=== PATIENT | male | born 1960 | race Caucasian/White ===

== ENCOUNTER → 2023-07-07 | Day surgery (SDC) | payer MEDICARE, BC, OTHER ==
[~2023-07-07] MED LIST: PROPOFOL 10 MG/ML 20 ML VIAL IV ONE
[2023-07-07] MEDS: LACTATED RINGERS 1,000 ML IV SCH (10:34)
[2023-07-07 10:54] VITALS: RESP 16; TEMP 97.1
--- NOTE | 2023-07-07 11:36 | P.PCN ---
Date of Procedure: 07/07/23 Procedure(s) Performed: BRIEF HISTORY: Patient is a 63-year-old pleasant White male scheduled for an elective colonoscopy as a part of Screening for colon cancer. PROCEDURE PERFORMED: Colonoscopy Snare polypectomy. PREOPERATIVE DIAGNOSIS: Screening for colon cancer. IV sedation per Anesthesia. PROCEDURE: After informed consent was obtained, the patient, was brought into the endoscopy unit. IV sedation was administered by Anesthesia under continuous monitoring. Digital rectal examination was normal. Initially the Olympus CF-160 flexible video colonoscope was then inserted in the rectum, gradually advanced into the cecum without any difficulty. Careful examination was performed as the scope was gradually being withdrawn. Ileocecal valve and the appendiceal orifice were visualized and appeared normal. Prep was excellent. Mucosa of the cecum,Appeared normal. In the ascending colon there was a 7 mm broad-based polyp that was removed by snare polypectomy. Rest of the ascending colon, transverse colon, descending colon, sigmoid colon, and rectum appeared normal. Proximal rectum there was a 3 mm polyp that was removed by cold snare polypectomy. Scattered sigmoid diverticula seen.Retroflexion was performed in the rectum and no lesions were seen. The patient tolerated the procedure well. IMPRESSION: 7 mm ascending colon polyp status post cold snare polypectomy 3 mm proximal rectal polyp status post cold snare polypectomy Scattered sigmoid diverticulosis RECOMMENDATIONS: Findings of this examination were discussed with the patient As well as his family. He was advised to follow with the biopsy results. If the biopsy reveals adenoma he can have a repeat colonoscopy in 5 years.
[2023-07-07 12:23] VITALS: BP 129/85; PULSE 68
== END ==
LOC: ORWHC2ENDO 10:06
PROVIDERS: ATTEND Internal Medicine Gastroenterology
DX: Z12.11 Encounter for screening for malignant neoplasm of colon (principal); D12.2 Benign neoplasm of ascending colon; D12.8 Benign neoplasm of rectum; K57.30 Diverticulosis of large intestine without perforation or abscess without bleeding; E78.5 Hyperlipidemia, unspecified; I10 Essential (primary) hypertension; K21.9 Gastro-esophageal reflux disease without esophagitis; Z87.891 Personal history of nicotine dependence; Z79.899 Other long term (current) drug therapy; Z87.890 Personal history of sex reassignment
CPT/HCPCS: 45385; 88305

== ENCOUNTER → 2023-12-16 | Outpatient (CLI) | payer MEDICARE, BC, OTHER ==
--- NOTE | 2023-12-16 10:25 | US ---
EXAMINATION TYPE: US Aorta Screening DATE OF EXAM: 12/16/2023 COMPARISON: CT 2012 CLINICAL INDICATION: Male, 63 years old with history of R13.10 DYSPHAGIA, UNSPECIFIED; Screening TECHNIQUE: Multiple sonographic images of the abdominal aorta are obtained. 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 [facility], , 12/16/2023 10:23 AM
== END | disposition home or self-care (01) ==
LOC: RADUSWWP 09:31
PROVIDERS: ATTEND Family Medicine
DX: R13.10 Dysphagia, unspecified
CPT/HCPCS: 76706

== ENCOUNTER 2024-01-26 08:17 | Day surgery (SDC) | payer MEDICARE, BC, OTHER ==
[~2024-01-26 08:17] MED LIST changes: +LIDOCAINE 1% (10MG/ML) FOR IV START INTRADERMA PRN; -PROPOFOL 10 MG/ML 20 ML VIAL IV ONE
[2024-01-26] MEDS: IV FLUID CONTINUATION 1,000 ML IV ONE (08:40)
[2024-01-26 08:46] VITALS: TEMP 96.9
[2024-01-26] MEDS: LACTATED RINGERS 1,000 ML IV SCH (08:49)
[2024-01-26] MEDS ORDERED: PROPOFOL 10 MG/ML 20 ML VIAL IV ONE (09:58)
[2024-01-26] MEDS ORDERED: LIDOCAINE 1% INJ 10MG/ML (20 ML MDV) ONE (09:58)
--- NOTE | 2024-01-26 10:15 | P.PCN ---
Date of Procedure: 01/26/24 Procedure(s) Performed: BRIEF HISTORY: Patient is a 64-year-old, pleasant, white male scheduled an upper endoscopy as a part evaluation of intermittent dysphagia to solids for the last 2 years duration. His symptoms are progressively getting worse since the last 4 months. He had an episode of acute food impaction about 4 months ago admitted emergency room and was given some glucagon and symptoms resolved.. PROCEDURE PERFORMED: Esophagogastroduodenoscopy with biopsy and balloon dilation. PREOPERATIVE DIAGNOSIS: Intermittent dysphagia to solids for the last 2 years duration. IV sedation per anesthesia. PROCEDURE: After informed consent was obtained, the patient was brought into the endoscopy unit. IV sedation was administered by Anesthesia under continuous monitoring. Initially the Olympus GIF-140 video endoscope was inserted into the mouth. Esophagus intubated without any difficulty. It was gradually advanced into the stomach and duodenum and carefully examined. The bulb and the second part of the duodenum appeared normal. The scope at this time was withdrawn to the stomach, adequately insufflated with air, and upon careful examination, mucosa of the antrum, had mild diffuse gastritis. Mucosa of the body, cardia and the fundus appeared normal. The scope was then withdrawn into the esophagus. The GE junction was located at 39 cm from the incisors. There is a small hiatal hernia noted. There was a distal esophageal Schatzki's ring identified and this was dilated using 20 mm TTS balloon for 30 seconds. There was a mucosal tear with oozing identified that spontaneously resolved. There were no erosions or ulcerations identified. The mucosal folds in the mid and distal esophagus appeared slightly thickened and biopsies were done to evaluate for eosinophilic esophagitis. Rest of the esophagus appeared normal and the patient tolerated the procedure well. IMPRESSION: 1. Distal esophageal Schatzki's ring status post balloon dilation using 20 mm TTS balloon as described above. 2. Small hiatal hernia 3. Slightly thickened distal esophageal folds suspicious for eosinophilic esophagitis s/p multiple biopsies. RECOMMENDATIONS: The findings of this examination were discussed with the patient as well as his family. He was advised to be on clear liquids for 2 h ours. Continue with omeprazole 20 mg daily and follow antireflux measures. Follow-up in the office in 3 to 4 weeks..
[2024-01-26 10:49] VITALS: BP 112/77; PULSE 70; RESP 20
== END 2024-01-26 10:56 | disposition home or self-care (01) ==
LOC: ORWHC2ENDO 08:17
PROVIDERS: ATTEND Internal Medicine Gastroenterology
DX: K22.2 Esophageal obstruction (principal); K44.9 Diaphragmatic hernia without obstruction or gangrene; R13.10 Dysphagia, unspecified; I10 Essential (primary) hypertension; Z79.899 Other long term (current) drug therapy
CPT/HCPCS: 88305; 43239; 43249; J2003; J2704; C1726